=== PATIENT | male | born 1990 | race Caucasian/White ===

== ENCOUNTER 2016-10-07 10:25 | Emergency (ER) | payer OTHER ==
[~2016-10-07 10:25] MED LIST: CARBAMAZEPINE PO; KEP500 PO
[2016-10-07 14:05] VITALS: BP 124/67
== END 2016-10-07 14:05 | disposition home or self-care (01) ==
LOC: ED 10:25
DX: R56.9 Unspecified convulsions (principal)
CPT/HCPCS: J2060

== ENCOUNTER 2017-01-20 15:51 | Emergency (ER) | payer OTHER ==
[2017-01-20 16:47] LABS: BASOPHIL % 0.3 % (0-2); PLATELET COUNT 186 x10^3mcL (130-400)
[2017-01-20 17:03] LABS: CALCIUM 8.4 mg/dL (8.5-10.1); CARBON DIOXIDE 26.5 mmol/L (21-32); CHLORIDE SERUM 105 mmol/L (98-107); CREATININE SERUM 0.9 mg/dL (0.7-1.3); GFR1 > 60 mL/min; GLUCOSE SERUM 81 mg/dL (74-106); SODIUM SERUM 140 mmol/L (136-145)
[2017-01-20 17:08] LABS: ALBUMIN 3.8 g/dL (3.4-5.0); ALKALINE PHOSPHATASE 75 U/L (46-116); ALT/SGPT 30 U/L (16-63); AST/SGOT 25 U/L (15-37); BILIRUBIN TOTAL 0.2 mg/dL (0.20-1.00); TOTAL PROTEIN, SERUM 7.2 g/dL (6.4-8.2)
[2017-01-20 18:01] LABS: UA SPECIFIC GRAVITY 1.025 (1.005-1.035); microscopic required? YES; urine erythrocyte TRACE (NEGATIVE)
[2017-01-20 18:09] LABS: AMPHETAMINE QUAL UR NONE DETECTED (NEG <=1000)
[2017-01-20 18:48] VITALS: BP 117/77
== END 2017-01-20 18:46 | disposition home or self-care (01) ==
LOC: ED 15:51
PROVIDERS: Emergency Medicine
DX: R56.9 Unspecified convulsions (principal)
CPT/HCPCS: 36415; 90715; G0480

== ENCOUNTER 2017-02-03 07:41 | Emergency (ER) | payer OTHER ==
[~2017-02-03] VITALS: Ht 167.6 cm; Wt 77.1 kg
[~2017-02-03 07:41] MED LIST changes: +TEGRETOL200 MG PO
[2017-02-03 07:59] VITALS: BP 126/85
== END 2017-02-03 08:34 | disposition left against medical advice (07) ==
LOC: ED 07:41
DX: R40.4 Transient alteration of awareness (principal); Z53.21 Procedure and treatment not carried out due to patient leaving prior to being seen by health care provider

== ENCOUNTER 2017-08-31 11:58 | Emergency (ER) | payer OTHER ==
[~2017-08-31] VITALS: Ht 167.6 cm; Wt 77.1 kg
[2017-08-31 12:27] VITALS: Ht 167.6 cm; Wt 77.1 kg
[2017-08-31 12:48] LABS: BASOPHIL % 0.3 % (0-2); PLATELET COUNT 186 x10^3mcL (130-400)
[2017-08-31 12:51] LABS: RED CELL DISTRIBUTION WIDTH 16.5 % (11.5-14.5)
[2017-08-31 12:55] LABS: CALCIUM 8.6 mg/dL (8.5-10.1); CARBON DIOXIDE 26.5 mmol/L (21-32); CHLORIDE SERUM 109 mmol/L (98-107); GFR1 > 60 mL/min; GLUCOSE SERUM 100 mg/dL (74-106); POTASSIUM SERUM 4.5 mmol/L (3.5-5.1); SODIUM SERUM 144 mmol/L (136-145)
[2017-08-31 12:59] LABS: ALBUMIN 3.9 g/dL (3.4-5.0); ALKALINE PHOSPHATASE 96 U/L (46-116); ALT/SGPT 30 U/L (16-63); AST/SGOT 23 U/L (15-37); BILIRUBIN TOTAL 0.28 mg/dL (0.20-1.00); TOTAL PROTEIN, SERUM 7.3 g/dL (6.4-8.2)
[2017-08-31 17:31] LABS: AMPHETAMINE QUAL UR POSITIVE (See below)
[2017-08-31 17:40] VITALS: BP 139/97
== END 2017-08-31 17:40 | disposition home or self-care (01) ==
LOC: ED 11:58
PROVIDERS: Emergency Medicine
DX: G40.909 Epilepsy, unspecified, not intractable, without status epilepticus (principal)
CPT/HCPCS: G0480; J2060; J7030